=== PATIENT | male | born 1995 | race Caucasian/White ===

== ENCOUNTER → 2016-12-11 | Outpatient (CLI) | payer BC ==
[~2016-12-11] MED LIST: LORA10CA2 PO; MULT-506 PO
[2016-12-11 17:50] LABS: BASO % 0.4 %; BASO ABS # 0.03 K/uL (0-0.2); COMPLETE YES; EOS % 3.3 %; HEMATOCRIT 45.3 % (42-52); IG% 0.2 %; LYMPH % 35.5 %; LYMPH ABS # 3.04 K/uL (1.2-3.4); MEAN CELL VOLUME 86.6 fL (80-100); MEAN CORPUSCULAR HEMOGLOBIN 30.8 pg (25-34); MEAN CORPUSCULAR HGB CONC 35.5 g/dl (32-36); MEAN PLATELET VOLUME 10.6 fL (7.4-10.4); MONO % 7.4 %; NEUT % 53.2 %; PLATELET COUNT 205 K/uL (130-400); RED BLOOD COUNT 5.23 M/uL (4.7-6.1); WHITE BLOOD COUNT 8.56 K/uL (4.8-10.8)
[2016-12-11 18:20] LABS: AST/SGOT 49 U/L (15-37); BLOOD UREA NITROGEN 18 mg/dl (7-18); BUN/CREATININE RATIO 16.4 (10-20); C-REACTIVE PROTEIN < 0.29 mg/dl (0-0.29); CALCIUM 8.7 mg/dl (8.5-10.1); CARBON DIOXIDE 29 mmol/L (21-32); CHLORIDE 104 mmol/L (98-107); GLUCOSE 83 mg/dl (70-99); POTASSIUM 3.7 mmol/L (3.5-5.1); SODIUM 138 mmol/L (136-145)
[2016-12-11 18:31] LABS: ALKALINE PHOSPHATASE 105 U/L (45-117); ALT/SGPT 43 U/L (12-78)
[2016-12-17 21:35] LABS: IGA SERUM 342 mg/dL (81-463); TIS TRANS IGA 1 U/mL (<4)
== END | disposition home or self-care (01) ==
LOC: C.LAB1850 16:53
PROVIDERS: ATTEND Registered Nurse
DX: R10.31 Right lower quadrant pain (principal)

== ENCOUNTER → 2017-01-04 | Day surgery (SDC) | payer BC ==
[2016-12-15 15:27] VITALS: Ht 181.6 cm; Wt 100.0 kg
[~2017-01-04] VITALS: Ht 181.6 cm; Wt 100.0 kg
[~2017-01-04] MED LIST changes: +FENTANYL CITRATE INJ 50 MCG/1 ML 2 ML VIAL ONE; +LIDOCAINE HCL 2% 2 ML VIAL (20MG/ML) ONE; +MIDAZOLAM HCL 1 MG/ML 2ML VIAL ONE; +PROPOFOL IV EMULSION 10 MG/ML 20 ML VIAL IV ONE; +SODIUM CHLORIDE 0.9% 500ML 500 ML IV ONE
--- NOTE | 2017-01-04 15:39 | Endo History and Physical ---
History & Physical Date of Service: Jan 04, 2017. Chief Complaint: chronic diarrhea, lower abdominal pain Referring Physician: Dr. Bruce History of Present Illness 21 yo CM who presents for Colonoscopy secondary to chronic diarrhea and lower abdominal pain. Past Surgical History Hx Cardiac Surgery: No Hx Internal Defibrillator: No Hx Pacemaker: No Hx Abdominal Surgery: No Hx of Implantable Prosthesis: No Hx Post-Op Nausea and Vomiting: No Hx Cancer Surgery: No Hx Thoracic Surgery: No Hx Orthopedic: No Hx Urinary Tract Surgery: No Family History None Social History Smoking Status: Never Smoker Hx Substance Use: No Hx Alcohol Use: Yes (RARELY) Allergies Coded Allergies: Aminoglycosides (Verified Allergy, Unknown, RASH, 12/15/16) Replaces BACITRACIN/NE Amoxicillin (Verified Allergy, Unknown, rash, 12/15/16) Bacitracin (Verified Allergy, Unknown, RASH, 12/15/16) Replaces BACITRACIN/NE Clavulanic Acid (Verified Allergy, Unknown, rash, 12/15/16) Latex1 -Allergic Contact Dermititis (Verified Allergy, Unknown, RASH, 12/15) Neomycin (Verified Allergy, Unknown, RASH, 12/15/16) Replaces BACITRACIN/NE Polymyxin B (Verified Allergy, Unknown, RASH, 12/15/16) Replaces BACITRACIN/NE Soap (Verified Allergy, Unknown, RASH, 12/15/16) Tetanus Toxoid (Verified Allergy, Unknown, RASH, 12/15/16) Uncoded Allergies: SUN SCREENS (Allergy, Unknown, RASH, 12/11/16) Current Medications Reported Home Medications Medications Dose Route/Sig Max Daily Dose Days Date Category Multivitamin (Multivitamins) Tab 1 Tab PO QAM 12/15/16 Reported Claritin (Loratadine) 10 Mg Cap 10 Mg PO DAILY PRN 12/15/16 Reported Vital Signs Weight (Kilograms): 100 Height (Feet): 5 Height (Inches): 11.5 Date Time Temp Pulse Resp B/P (MAP) Pulse Ox O2 Delivery O2 Flow Rate FiO2 01/04/17 15:20 36.9 66 18 167/64 (98) 100 Room Air Physical Exam General Appearance: WD/WN, no apparent distress Respiratory/Chest: Auscultation: breath sounds normal Cardiovascular: Heart Auscultation: RRR Abdomen: Bowel Sounds: normal Inspection & Palpation: soft, non-distended, no tenderness, guarding & rebound Assessment and Plan Assessment: 21 yo CM who presents for Colonoscopy secondary to chronic diarrhea and lower abdominal pain. Plan: Proceed with colonoscopy.
--- NOTE | 2017-01-04 16:11 | Discharge Instructions ---
Endoscopy Patient Instructions Date / Procedure(s) Performed Jan 04, 2017. Colonoscopy Allergy Information Coded Allergies: Aminoglycosides (Verified Allergy, Unknown, RASH, 12/15/16) Replaces BACITRACIN/NE Amoxicillin (Verified Allergy, Unknown, rash, 12/15/16) Bacitracin (Verified Allergy, Unknown, RASH, 12/15/16) Replaces BACITRACIN/NE Clavulanic Acid (Verified Allergy, Unknown, rash, 12/15/16) Latex1 -Allergic Contact Dermititis (Verified Allergy, Unknown, RASH, 12/15) Neomycin (Verified Allergy, Unknown, RASH, 12/15/16) Replaces BACITRACIN/NE Polymyxin B (Verified Allergy, Unknown, RASH, 12/15/16) Replaces BACITRACIN/NE Soap (Verified Allergy, Unknown, RASH, 12/15/16) Tetanus Toxoid (Verified Allergy, Unknown, RASH, 12/15/16) Uncoded Allergies: SUN SCREENS (Allergy, Unknown, RASH, 12/11/16) Discharge Date / Findings Jan 04, 2017. Normal colonoscopy with random colon biopsies Medication Instructions OK to resume all medications today as prescribed Reported Home Medications Medications Dose Route/Sig Max Daily Dose Days Date Category Multivitamin (Multivitamins) Tab 1 Tab PO QAM 12/15/16 Reported Claritin (Loratadine) 10 Mg Cap 10 Mg PO DAILY PRN 12/15/16 Reported Provider Instructions Activity Restrictions - No exercising or heavy lifting for 24 hours. - Do not drink alcohol the day of the procedure. - Do not drive a car or operate machinery until the day after the procedure. - Do not make any important decisions or sign important papers in 24 hours after the procedure. Following Day: - Return to full activity which may include returning to work/school. Diet Start your diet with liquids and light foods (jello, soup, juice, toast). Then eat your usual diet if not nauseated. Treatment For Common After Affects For mild abdominal pain, bloating, or excessive gas: - Rest - Eat lightly - Lie on right side Follow-Up Information Follow-up with Dr. Bruce as scheduled Anesthesia Information What You Should Know You have had a procedure that required some medicine to reduce anxiety and discomfort. This treatment is called moderate sedation. After receiving the treatment, you may be sleepy, but you will be able to breathe on your own. The effects of the treatment may last for several hours. Follow these instructions along with Activity/Diet recommendations noted above: * Do NOT do anything where dizziness or clumsiness would be dangerous. * Rest quietly at home today, then you can be up and about tomorrow. * Have a responsible person stay with you the rest of today. * You may have had an I.V. today. If so, you may take the dressing off later today. Recommendations Call your doctor if: * Trouble breathing * Continuous vomiting for more than 24 hours * Temperature above 101 degrees * Severe abdominal pain or bloating * Pain not relieved by pain medicine ordered * There is increased drainage or redness from any incision * A large amount of rectal bleeding greater than 2-3 tablespoons. (If you had a polyp/s removed or have hemorrhoids, a small amount of blood - from the rectum is to be expected.) * You have any unanswered questions or concerns. IN THE EVENT OF A SERIOUS EMERGENCY, GO TO THE NEAREST EMERGENCY ROOM Your discharge instructions were prepared by provider Moe Ngo. Patient Instructions Signature Page Vasiliy Lopez Patient (or Guardian) Signature/Date: I have read and understand the instructions given to me by my caregivers. Caregiver/RN/Doctor Signature/Date: The above-named patient and/or guardian has received patient instructions on this date. + Original Patient Signature Page (only) stays with chart. Please make copy for patient.
--- NOTE | 2017-01-04 16:21 | Anesthesiology Progress Note ---
Anesthesia Post Op Note Date & Time Jan 04, 2017 at 16:21 Vital Signs Pain Intensity: 0 Vital Signs Past 12 Hours Date Time Temp Pulse Resp B/P (MAP) Pulse Ox O2 Delivery O2 Flow Rate FiO2 01/04/17 16:06 69 13 103/62 (76) 96 Room Air 01/04/17 15:20 36.9 66 18 167/64 (98) 100 Room Air Notes Mental Status: alert / awake / arousable, participated in evaluation Pt Amnestic to Procedure: Yes Nausea / Vomiting: adequately controlled Pain: adequately controlled Airway Patency, RR, SpO2: stable & adequate BP & HR: stable & adequate Hydration State: stable & adequate Anesthetic Complications: no major complications apparent
--- NOTE | 2017-01-04 16:23 | GI REPORT ---
Procedure Date: 01/04/2017 3:28 PM Procedure: Colonoscopy Indications: Generalized abdominal pain, Chronic diarrhea Medicines: Monitored Anesthesia Care Complications: No immediate complications. Estimated Blood Loss: Estimated blood loss: none. Procedure: Pre-Anesthesia Assessment: - Prior to the procedure, a History and Physical was performed, and patient medications and allergies were reviewed. The patient's tolerance of previous anesthesia was also reviewed. The risks and benefits of the procedure and the sedation options and risks were discussed with the patient. All questions were answered, and informed consent was obtained. Prior Anticoagulants: The patient has taken no previous anticoagulant or antiplatelet agents. ASA Grade Assessment: II - A patient with mild systemic disease. After reviewing the risks and benefits, the patient was deemed in satisfactory condition to undergo the procedure. After I obtained informed consent, the scope was passed under direct vision. Throughout the procedure, the patient's blood pressure, pulse, and oxygen saturations were monitored continuously. The scope was introduced through the anus and advanced to the terminal ileum. The colonoscopy was performed without difficulty. The patient tolerated the procedure well. The quality of the bowel preparation was good. The terminal ileum, ileocecal valve, appendiceal orifice, and rectum were photographed. Findings: The colon (entire examined portion) appeared normal. Several random biopsies were obtained with cold forceps for histology in the entire colon. Impression: - The entire examined colon is normal. - Several random biopsies were obtained in the entire colon. Recommendation: - Resume previous diet. - Continue present medications. - Await pathology results. - Return to GI office as previously scheduled. Moe Ngo DO 01/04/2017 4:22:52 PM This report has been signed electronically. Note Initiated On: 01/04/2017 3:28 PM I attest to the content of the Intraoperative Record and orders documented therein, exceptions below
[2017-01-04 16:35] VITALS: BP 146/66; PULSE 50; O2SAT 100
== END | disposition home or self-care (01) ==
LOC: C.GI 15:04
PROVIDERS: ATTEND Internal Medicine
DX: R19.7 Diarrhea, unspecified (principal); R10.30 Lower abdominal pain, unspecified

== ENCOUNTER → 2017-08-27 | Day surgery (SDC) | payer BC, OTHER ==
[2017-08-20 16:36] VITALS: BMI 28.0
[~2017-08-27] VITALS: Ht 180.3 cm; Wt 93.2 kg
[~2017-08-27] MED LIST changes: +ASCO1CAP3 PO; +ASCOCRY2; -FENTANYL CITRATE INJ 50 MCG/1 ML 2 ML VIAL ONE; -MIDAZOLAM HCL 1 MG/ML 2ML VIAL ONE; +OMEG10007 PO; +PROB1CAP41 PO; -PROPOFOL IV EMULSION 10 MG/ML 20 ML VIAL IV ONE; +PROPOFOL IV EMULSION 10 MG/ML 20 ML VIAL ONE; -SODIUM CHLORIDE 0.9% 500ML 500 ML IV ONE
[2017-08-27 09:42] VITALS: Ht 180.3 cm; Wt 93.2 kg
[2017-08-27 09:57] VITALS: TEMP 36.7
--- NOTE | 2017-08-27 09:58 | Endo History and Physical ---
History & Physical Date of Service: August 27, 2017. Chief Complaint: ABD PAIN COLITIS DIARRHEA Referring Physician: DR. FERRER History of Present Illness 22 yo CM who presents for Colonoscopy secondary to abdominal, diarrhea, and colitis. Past Surgical History Hx Cardiac Surgery: No Hx Internal Defibrillator: No Hx Pacemaker: No Hx Abdominal Surgery: No Hx of Implantable Prosthesis: No Hx Post-Op Nausea and Vomiting: No Hx Cancer Surgery: No Hx Thoracic Surgery: No Hx Orthopedic: No Hx Urinary Tract Surgery: No Family History None Social History Smoking Status: Never Smoker Hx Substance Use: No Hx Alcohol Use: Yes (RARELY) Allergies Coded Allergies: Aminoglycosides (Verified Allergy, Unknown, RASH, 08/20/17) Replaces BACITRACIN/NE Amoxicillin (Verified Allergy, Unknown, rash, 08/20/17) Bacitracin (Verified Allergy, Unknown, RASH, 08/20/17) Replaces BACITRACIN/NE Clavulanic Acid (Verified Allergy, Unknown, rash, 08/20/17) Latex1 -Allergic Contact Dermititis (Verified Allergy, Unknown, RASH, ) Neomycin (Verified Allergy, Unknown, RASH, 08/20/17) Replaces BACITRACIN/NE Polymyxin B (Verified Allergy, Unknown, RASH, 08/20/17) Replaces BACITRACIN/NE Soap (Verified Allergy, Unknown, RASH, 08/20/17) Tetanus Toxoid (Verified Allergy, Unknown, RASH, 08/20/17) Uncoded Allergies: SUN SCREENS (Allergy, Unknown, RASH, 12/11/16) Current Medications Reported Home Medications Medications Dose Route/Sig Max Daily Dose Days Date Category [place]-3 (Fish Oil) 1 Ea Cap 1 Cap PO QD 08/27/17 Reported Vitamin C (Ascorbic Acid) 500 Mg Cap PO QD 08/27/17 Reported Probiotic Daily (Probiotic Product) 1 Cap Cap 1 Cap PO DAILY 08/20/17 Reported Multivitamin (Multivitamins) Tab 1 Tab PO QAM 12/15/16 Reported Claritin (Loratadine) 10 Mg Cap 10 Mg PO DAILY PRN 12/15/16 Reported Vital Signs Weight (Kilograms): 93.18 Height (Feet): 5 Height (Inches): 11 Physical Exam General Appearance: WD/WN, no apparent distress Respiratory/Chest: Auscultation: breath sounds normal Cardiovascular: Heart Auscultation: RRR Abdomen: Bowel Sounds: normal Inspection & Palpation: soft, non-distended, no tenderness, guarding & rebound Assessment and Plan Assessment: 22 yo CM who presents for Colonoscopy secondary to abdominal, diarrhea, and colitis. Plan: Proceed with colonoscopy.
--- NOTE | 2017-08-27 10:56 | Discharge Instructions ---
Endoscopy Patient Instructions Date / Procedure(s) Performed August 27, 2017. Colonoscopy Allergy Information Coded Allergies: Aminoglycosides (Verified Allergy, Unknown, RASH, 08/27/17) Replaces BACITRACIN/NE Amoxicillin (Verified Allergy, Unknown, rash, 08/27/17) Bacitracin (Verified Allergy, Unknown, RASH, 08/27/17) Replaces BACITRACIN/NE Clavulanic Acid (Verified Allergy, Unknown, rash, 08/27/17) Latex1 -Allergic Contact Dermititis (Verified Allergy, Unknown, RASH, 08/27) Neomycin (Verified Allergy, Unknown, RASH, 08/27/17) Replaces BACITRACIN/NE Polymyxin B (Verified Allergy, Unknown, RASH, 08/27/17) Replaces BACITRACIN/NE Soap (Verified Allergy, Unknown, RASH, 08/27/17) Tetanus Toxoid (Verified Allergy, Unknown, RASH, 08/27/17) Uncoded Allergies: SUN SCREENS (Allergy, Unknown, RASH, 12/11/16) Discharge Date / Findings August 27, 2017. Random colon biopsies Stool aspirate collected Internal hemorrhoids Medication Instructions OK to resume all medications today as prescribed Reported Home Medications Medications Dose Route/Sig Max Daily Dose Days Date Category [place]-3 (Fish Oil) 1 Ea Cap 1 Cap PO QD 08/27/17 Reported Vitamin C (Ascorbic Acid) 500 Mg Cap PO QD 08/27/17 Reported Probiotic Daily (Probiotic Product) 1 Cap Cap 1 Cap PO DAILY 08/20/17 Reported Multivitamin (Multivitamins) Tab 1 Tab PO QAM 12/15/16 Reported Claritin (Loratadine) 10 Mg Cap 10 Mg PO DAILY PRN 12/15/16 Reported Provider Instructions Activity Restrictions - No exercising or heavy lifting for 24 hours. - Do not drink alcohol the day of the procedure. - Do not drive a car or operate machinery until the day after the procedure. - Do not make any important decisions or sign important papers in 24 hours after the procedure. Following Day: - Return to full activity which may include returning to work/school. Diet Start your diet with liquids and light foods (jello, soup, juice, toast). Then eat your usual diet if not nauseated. Treatment For Common After Affects For mild abdominal pain, bloating, or excessive gas: - Rest - Eat lightly - Lie on right side Follow-Up Information Follow-up with DR. FERRER as scheduled Anesthesia Information What You Should Know You have had a procedure that required some medicine to reduce anxiety and discomfort. This treatment is called moderate sedation. After receiving the treatment, you may be sleepy, but you will be able to breathe on your own. The effects of the treatment may last for several hours. Follow these instructions along with Activity/Diet recommendations noted above: * Do NOT do anything where dizziness or clumsiness would be dangerous. * Rest quietly at home today, then you can be up and about tomorrow. * Have a responsible person stay with you the rest of today. * You may have had an I.V. today. If so, you may take the dressing off later today. Recommendations Call your doctor if: * Trouble breathing * Continuous vomiting for more than 24 hours * Temperature above 101 degrees * Severe abdominal pain or bloating * Pain not relieved by pain medicine ordered * There is increased drainage or redness from any incision * A large amount of rectal bleeding greater than 2-3 tablespoons. (If you had a polyp/s removed or have hemorrhoids, a small amount of blood - from the rectum is to be expected.) * You have any unanswered questions or concerns. IN THE EVENT OF A SERIOUS EMERGENCY, GO TO THE NEAREST EMERGENCY ROOM Your discharge instructions were prepared by provider Moe Ngo. Patient Instructions Signature Page Vasiliy Lopez Patient (or Guardian) Signature/Date: I have read and understand the instructions given to me by my caregivers. Caregiver/RN/Doctor Signature/Date: The above-named patient and/or guardian has received patient instructions on this date. + Original Patient Signature Page (only) stays with chart. Please make copy for patient.
--- NOTE | 2017-08-27 11:26 | GI REPORT ---
Patient Name: Vasiliy Lopez Procedure Date: 08/27/2017 10:29 AM Date of : 1995 Admit Type: Outpatient Age: 22 Gender: Male Attending MD: Moe Ngo DO Procedure: Colonoscopy Providers: Moe Ngo DO Referring MD: Andi Bruce Indications: Generalized abdominal pain, Rectal bleeding Medicines: Monitored Anesthesia Care Complications: No immediate complications. Estimated Blood Loss: Estimated blood loss: none. Procedure: Pre-Anesthesia Assessment: - Prior to the procedure, a History and Physical was performed, and patient medications and allergies were reviewed. The patient's tolerance of previous anesthesia was also reviewed. The risks and benefits of the procedure and the sedation options and risks were discussed with the patient. All questions were answered, and informed consent was obtained. Prior Anticoagulants: The patient has taken no previous anticoagulant or antiplatelet agents. ASA Grade Assessment: I - A normal, healthy patient. After reviewing the risks and benefits, the patient was deemed in satisfactory condition to undergo the procedure. After I obtained informed consent, the scope was passed under direct vision. Throughout the procedure, the patient's blood pressure, pulse, and oxygen saturations were monitored continuously. The scope was introduced through the anus and advanced to the terminal ileum. The colonoscopy was performed without difficulty. The patient tolerated the procedure well. The quality of the bowel preparation was good. The terminal ileum, ileocecal valve, appendiceal orifice, and rectum were photographed. Findings: The perianal and digital rectal examinations were normal. The colon (entire examined portion) appeared normal. Several random biopsies were obtained with cold forceps for histology in the entire colon. Fluid aspiration for stool studies was performed. Non-bleeding internal hemorrhoids were found during retroflexion. The hemorrhoids were small. Impression: - The entire examined colon is normal. Fluid aspiration performed. - Non-bleeding internal hemorrhoids. - Several random biopsies were obtained in the entire colon. Recommendation: - Resume previous diet. - Continue present medications. - Repeat colonoscopy for surveillance based on pathology results. - Return to primary care physician as previously scheduled. Moe Ngo DO 08/27/2017 11:26:08 AM This report has been signed electronically. Note Initiated On: 08/27/2017 10:29 AM Number of Addenda: 0 I attest to the content of the Intraoperative Record and orders documented therein, exceptions below {[id number]}
[2017-08-27 11:28] VITALS: BP 97/45; PULSE 58; O2SAT 96
--- NOTE | 2017-08-27 11:41 | Anesthesiology Progress Note ---
Anesthesia Post Op Note Date & Time August 27, 2017 at 11:40 Vital Signs Pain Intensity: 0 Vital Signs Past 12 Hours Date Time Temp Pulse Resp B/P (MAP) Pulse Ox O2 Delivery O2 Flow Rate FiO2 08/27/17 11:28 58 18 97/45 (62) 96 Room Air 08/27/17 11:13 52 18 104/41 (62) 95 Room Air 08/27/17 10:57 58 18 101/44 (63) 94 Room Air 08/27/17 09:57 36.7 93 16 103/69 (80) 99 Room Air Notes Mental Status: alert / awake / arousable, participated in evaluation Pt Amnestic to Procedure: Yes Nausea / Vomiting: adequately controlled Pain: adequately controlled Airway Patency, RR, SpO2: stable & adequate BP & HR: stable & adequate Hydration State: stable & adequate Anesthetic Complications: no major complications apparent
== END | disposition home or self-care (01) ==
LOC: C.GI 09:28
PROVIDERS: ATTEND Internal Medicine
DX: R10.9 Unspecified abdominal pain (principal); K52.9 Noninfective gastroenteritis and colitis, unspecified; R19.7 Diarrhea, unspecified; K64.8 Other hemorrhoids; K21.9 Gastro-esophageal reflux disease without esophagitis; Z88.1 Allergy status to other antibiotic agents; Z91.040 Latex allergy status; Z88.7 Allergy status to serum and vaccine; Z88.8 Allergy status to other drugs, medicaments and biological substances